=== PATIENT | male | born 1970 | race Caucasian/White ===

== ENCOUNTER 2024-02-06 06:17 | Day surgery (SDC) | payer OTHER ==
[~2024-02-06 06:17] MED LIST: Sodium Chloride 0.9% 10 ML Syringe FLUSH PRN
[2024-02-06] MEDS ORDERED: Midazolam 1 MG/ML 2 ML SDV IV ONE (06:18)
[2024-02-06] MEDS ORDERED: fentaNYL 100 MCG/2 ML SDV IV ONE (06:18)
[2024-02-06] MEDS: Lactated Ringers 1,000 ML IV SCH (07:07)
[2024-02-06] MEDS: ceFAZolin 2 GM Vial IVPUSH ONE (07:23)
[2024-02-06] MEDS: Sodium Bicarbonate 8.4% 50 MEQ/50 ML Syringe ONE (07:45)
[2024-02-06] MEDS: Bupivacaine 0.5% 30 ML SDV INJECT ONE (07:45)
[2024-02-06] MEDS: Lidocaine 1% with EPINEPHrine 1:100,000 20 ML MDV INJECT ONE (07:45)
== END 2024-02-06 09:10 | disposition home or self-care (01) ==
LOC: FB.SDS 06:17
PROVIDERS: ATTEND Surgery
DX: D17.1 Benign lipomatous neoplasm of skin and subcutaneous tissue of trunk (principal); Z87.891 Personal history of nicotine dependence; Z79.82 Long term (current) use of aspirin; Z79.899 Other long term (current) drug therapy
CPT/HCPCS: 00300; 21931; 88304; J0665; J0690; J2250; J3010; J7120